=== PATIENT | female | born 1940 | race Caucasian/White ===

== ENCOUNTER 2017-12-16 10:47 | Inpatient (IN) | payer OTHER ==
[~2017-12-16] VITALS: Ht 154.9 cm; Wt 77.0 kg
[~2017-12-16 10:47] MED LIST: ARICEPT10 MG PO; BYSTOLIC10 MG PO; CARDURA2 M1 PO; CATAPRES0.1 MG PO; COZAAR100 MG PO; CRESTOR40 MG PO; ECOTRIN325 MG PO; FENOFIBRATE160 M1 PO; FERREX 150150 MG PO; FIBERCON625 MG PO; FISH OIL 1,2001 EAC4 PO; FOLIC ACID0.8 MG PO; HYDROCHLOROTHIA25 MG PO; LANTUS 3 M100 UNITS1 SC; OMEGA-3 FISH O1 EAC9 PO; OXYBUTYNIN CHLOR5 M1 PO; PRILOSEC40 MG PO; SINGULAIR10 MG PO; ULTRAM50 MG PO; ZESTRIL20 MG PO; ZYRTEC10 M3 PO
[2017-12-16 11:59] LABS: BASOPHIL (%) 0.4 % (0-1); EOSINOPHIL (%) 2.3 % (0-5); EOSINOPHIL COUNT 0.1 K/uL (0-0.3); HEMATOCRIT 37.8 % (36.0-46.0); HEMOGLOBIN 12.5 G/DL (11.9-15.5); IMMATURE GRANULOCYTE (%) 0.2 % (0.0-0.7); LYMPHOCYTE (%) 12.2 % (15-42); LYMPHOCYTE COUNT 0.6 K/uL (1.0-2.8); MCH 29.9 PG (29.0-34.0); MCHC 33.1 G/DL (30.0-36.0); MCV 90.4 FL (83-99); MONOCYTE (%) 24.4 % (3-12); MONOCYTE COUNT 1.3 K/uL (0-0.8); NEUTROPHIL (%) 60.5 % (45-76); NEUTROPHIL COUNT 3.1 K/uL (1.8-6.4); PLATELET COUNT 187 K/uL (156-360); RBC DIS.WIDTH-CV 14.9 % (11.8-14.6); RBC DIS.WIDTH-SD 49.6 % (39-53); RED BLOOD COUNT 4.18 M/uL (3.80-5.20); WHITE BLOOD COUNT 5.2 K/uL (4.1-10.2)
[2017-12-16 12:04] LABS: INTER. NORMALIZED RATIO 1.4
[2017-12-16 12:07] LABS: ALBUMIN 4.2 g/dL (3.2-4.8); CHLORIDE 104 mEq/L (99-109); POTASSIUM 4.8 mEq/L (3.7-5.4)
[2017-12-16 12:08] LABS: MAGNESIUM 2.2 mg/dL (1.3-2.7); SODIUM 134 mEq/L (136-147)
[2017-12-16 12:10] LABS: GLUCOSE 156 mg/dL (70-99); TOTAL PROTEIN 6.5 g/dL (6.4-8.3)
[2017-12-16 12:12] LABS: TOTAL BILIRUBIN 0.2 mg/dL (0.0-1.0)
[2017-12-16 12:13] LABS: ALKALINE PHOSPHATASE 42 IU/L (3-129)
[2017-12-16 12:14] LABS: CREATININE 3.9 mg/dL (0.6-1.3); GFR ESTIMATE (CALCULATED) 12 mL/min/
[2017-12-16 12:15] LABS: AST (GOT) 33 IU/L (2-34); UREA NITROGEN (BUN) 58 mg/dL (9-23)
[2017-12-16 12:17] LABS: ALT (GPT) 28 IU/L (3-49); CREATINE KINASE 262 IU/L (1-294); TOTAL CK 262 IU/L (1-294)
[2017-12-16 12:20] LABS: TROP-I INTERPRETATION NEGATIVE; TROPONIN-I 0.02 ng/mL (0.0-0.30)
[2017-12-16 12:22] LABS: CK-MB 6.4 ng/mL (0.0-4.9); CKMB RELATIVE INDEX 2.4 (0.0-3.9)
[2017-12-16 15:23] LABS: APPEARANCE CLEAR ((CLEAR)); BILIRUBIN NEGATIVE; BLOOD NEGATIVE; COLOR YELLOW ((YELLOW)); GLUCOSE (STRIP) NEGATIVE; KETONES NEGATIVE; LEUKOCYTES NEGATIVE; NITRITE NEGATIVE; PROTEIN (STRIP) 30; SPECIFIC GRAVITY 1.009 (1.000-1.030); UCUL ADDED? NO; UROBILINOGEN 0.2 MG/DL (0.2-1.0)
[2017-12-16] MEDS ORDERED: LABETALOL HCL100 MG PO (17:33)
[2017-12-16] MEDS ORDERED: XARELTO15 MG PO (17:33)
[2017-12-16] MEDS ORDERED: BETAMETHASONE D50 G1 TP (17:33)
[2017-12-16] MEDS ORDERED: RANITIDINE HCL300 MG PO (17:33)
[2017-12-16 19:52] LABS: TROP-I INTERPRETATION NEGATIVE; TROPONIN-I 0.01 ng/mL (0.0-0.30)
[2017-12-16 20:33] VITALS: BP 149/75
[2017-12-16 23:44] VITALS: BP 121/63
[2017-12-17 00:52] LABS: TROP-I INTERPRETATION NEGATIVE; TROPONIN-I 0.02 ng/mL (0.0-0.30)
[2017-12-17 04:13] VITALS: BP 133/67
[2017-12-17 06:46] LABS: HEMATOCRIT 37.5 % (36.0-46.0); HEMOGLOBIN 12.1 G/DL (11.9-15.5); MCH 28.9 PG (29.0-34.0); MCHC 32.3 G/DL (30.0-36.0); MCV 89.7 FL (83-99); PLATELET COUNT 198 K/uL (156-360); RBC DIS.WIDTH-CV 14.8 % (11.8-14.6); RBC DIS.WIDTH-SD 49.1 % (39-53); RED BLOOD COUNT 4.18 M/uL (3.80-5.20); WHITE BLOOD COUNT 3.6 K/uL (4.1-10.2)
[2017-12-17 06:54] LABS: CHLORIDE 110 MEQ/L (99-109); GFR ESTIMATE (CALCULATED) 21 mL/min/; POTASSIUM 4.5 MEQ/L (3.7-5.4); SODIUM 140 MEQ/L (136-147); UREA NITROGEN (BUN) 44 mg/dL (9-23)
[2017-12-17 06:55] LABS: CREATININE 2.4 MG/DL (0.6-1.3); GLUCOSE 98 mg/dL (70-99)
[2017-12-17 07:41] VITALS: BP 148/69
[2017-12-17 12:15] VITALS: BP 138/73
[2017-12-17] MEDS ORDERED: LANTUS 10100 UNITS/ SC ×2 (12:55→12:56)
[2017-12-17] MEDS ORDERED: CENTRUM SILVER1 EAC3 PO (12:59)
[2017-12-17] MEDS ORDERED: BIOTIN 5000MCG PO (12:59)
[2017-12-17] MEDS ORDERED: VITAMIN D31000 UNI2 PO (13:01)
[2017-12-17] MEDS ORDERED: FERREX 150150 MG PO (13:01)
[2017-12-17] MEDS ORDERED: VENTOLIN HFA18 GM IH (13:02)
[2017-12-17 16:22] VITALS: BP 129/60
[2017-12-17 21:32] VITALS: BP 159/80
[2017-12-18] VITALS: BP 132/62
[2017-12-18 04:00] VITALS: BP 113/53
[2017-12-18 06:37] LABS: BASOPHIL (%) 0.1 % (0-1); EOSINOPHIL (%) 0.2 % (0-5); HEMATOCRIT 34.8 % (36.0-46.0); HEMOGLOBIN 11.4 G/DL (11.9-15.5); IMMATURE GRANULOCYTE (%) 0.5 % (0.0-0.7); LYMPHOCYTE (%) 8.3 % (15-42); LYMPHOCYTE COUNT 0.9 K/uL (1.0-2.8); MCH 29.7 PG (29.0-34.0); MCHC 32.8 G/DL (30.0-36.0); MCV 90.6 FL (83-99); MONOCYTE (%) 10.1 % (3-12); MONOCYTE COUNT 1.1 K/uL (0-0.8); NEUTROPHIL (%) 80.8 % (45-76); NEUTROPHIL COUNT 8.6 K/uL (1.8-6.4); PLATELET COUNT 184 K/uL (156-360); RBC DIS.WIDTH-SD 49.9 % (39-53); RED BLOOD COUNT 3.84 M/uL (3.80-5.20); WHITE BLOOD COUNT 10.7 K/uL (4.1-10.2)
[2017-12-18 07:05] LABS: CHLORIDE 110 MEQ/L (99-109); CREATININE 2.1 MG/DL (0.6-1.3); GFR ESTIMATE (CALCULATED) 24 mL/min/; POTASSIUM 4.8 MEQ/L (3.7-5.4); SODIUM 138 MEQ/L (136-147); UREA NITROGEN (BUN) 42 mg/dL (9-23)
[2017-12-18 07:10] LABS: GLUCOSE 159 mg/dL (70-99)
[2017-12-18 08:36] VITALS: BP 138/72
[2017-12-18] MEDS ORDERED: OSELTAMIVIR PHO30 MG PO (09:52)
[2017-12-18] MEDS ORDERED: AMOXICILLIN500 MG PO (09:52)
== END 2017-12-18 12:12 | disposition home or self-care (01) | DRG 684 ==
LOC: EME 10:47 → ENRESERV 13:57 → 5SOUTH 14:06 → EDOF 14:06 → ENRESERV 16:41 → 5SOUTH 20:01
PROVIDERS: Emergency Medicine; Internal Medicine; Internal Medicine Nephrology
DX: N17.9 Acute kidney failure, unspecified (principal); J10.1 Influenza due to other identified influenza virus with other respiratory manifestations; K21.0 Gastro-esophageal reflux disease with esophagitis; J45.909 Unspecified asthma, uncomplicated; J01.90 Acute sinusitis, unspecified; N18.3 Chronic kidney disease, stage 3 (moderate); N28.1 Cyst of kidney, acquired; N27.0 Small kidney, unilateral; E78.5 Hyperlipidemia, unspecified; I12.9 Hypertensive chronic kidney disease with stage 1 through stage 4 chronic kidney disease, or unspecified chronic kidney disease; D64.9 Anemia, unspecified; I95.1 Orthostatic hypotension; E86.0 Dehydration; E11.22 Type 2 diabetes mellitus with diabetic chronic kidney disease; N18.9 Chronic kidney disease, unspecified; E27.9 Disorder of adrenal gland, unspecified; R55 Syncope and collapse; Z87.891 Personal history of nicotine dependence; Z90.49 Acquired absence of other specified parts of digestive tract; Z85.3 Personal history of malignant neoplasm of breast; Z79.01 Long term (current) use of anticoagulants; Z79.4 Long term (current) use of insulin; E66.9 Obesity, unspecified; Z68.32 Body mass index [BMI] 32.0-32.9, adult; T46.4X5A Adverse effect of angiotensin-converting-enzyme inhibitors, initial encounter; E04.2 Nontoxic multinodular goiter; W19.XXXA Unspecified fall, initial encounter
CPT/HCPCS: 70450; 71045; 74176; 76770; 80048; 80053; 81003; 82436; 82550; 82553; 82948; 83605; 83735; 84300; 84484; 85025; 85027; 85610; 85730; 87040; 87502; 93005; 93306; 93880; 99281; 99285; J1644; J7030